=== PATIENT | female | born 1945 | race Caucasian/White ===

== ENCOUNTER 2017-07-25 19:03 | Inpatient (IN) | payer MEDICARE, MEDICAID ==
[~2017-07-25] VITALS: Ht 167.6 cm; Wt 74.0 kg
[2017-07-25 19:39] LABS: BASOPHILS # (AUTO) 0.14 x10^3/uL (0-0.1); BASOPHILS % (AUTO) 1 % (0-1); EOSINOPHILS # (AUTO) 0.52 x10^3/uL (0-0.4); EOSINOPHILS % (AUTO) 4 % (1-7); LYMPHOCYTES # (AUTO) 4.28 x10^3/uL (1-3.4); LYMPHOCYTES % (AUTO) 33 % (22-44); MD NO; MEAN CORPUSCULAR HEMOGLOBIN 32.5 pg (27.0-34.8); MEAN CORPUSCULAR HGB CONC 34.2 g/dL (32.4-35.8); MEAN CORPUSCULAR VOLUME 95.2 fL (80-100); MEAN PLATELET VOLUME 7.7 fL (7.4-10.4); MONOCYTES # (AUTO) 0.84 x10^3/uL (0.2-0.8); MONOCYTES % (AUTO) 6 % (2-9); NEUTROPHILS # (AUTO) 7.28 x10^3/uL (1.8-6.8); NEUTROPHILS % (AUTO) 56 % (42-75); PLATELET COUNT 389 x10^3/uL (130-400); RED BLOOD COUNT 4.75 x10^6/uL (3.82-5.3); RED CELL DISTRIBUTION WIDTH 13.4 % (9.6-15.2)
[2017-07-25 19:46] LABS: ALBUMIN 3.8 g/dL (3.4-5.0); ANION GAP 6 mmol/L (5-15); CALCIUM 8.6 mg/dL (8.5-10.1); CHLORIDE 108 mmol/L (98-107); CREATININE 0.95 mg/dL (0.55-1.02)
[2017-07-25 20:23] LABS: HCT (SEDRATE) 42.7 % (34.6-47.8)
[2017-07-25 20:25] LABS: INTERNATIONAL NORMALIZED RATIO 0.95 (0.93-1.1); PROTHROMBIN TIME 9.9 Seconds (9.6-11.5)
[2017-07-25] MEDS ORDERED: ASPIRIN 81 MG TABLET CHEW PO ONE (21:00)
[2017-07-25] MEDS ORDERED: ASPIRIN 81 MG TABLET CHEW ONE (21:19)
[2017-07-25 21:46] LABS: HEMOGLOBIN A1C 6.3 % (4.2-6.3)
[2017-07-25] MEDS ORDERED: SODIUM CHLORIDE FLUSH 10ML SYR IVF PRN (23:00)
[2017-07-25] MEDS ORDERED: hydrALAzine 20 MG/ML, 1ML ONE (23:01)
[2017-07-25 23:30] VITALS: BP 173/75
[2017-07-25] MEDS ORDERED: NICOTINE 14MG/24 HR PATCH.TD24 TD ONE (23:30)
[2017-07-25] MEDS ORDERED: hydrALAzine 20 MG/ML, 1ML IV PRN (23:30)
[2017-07-25] MEDS ORDERED: BISACODYL 10 MG SUPP PR PRN (23:30)
[2017-07-25] MEDS ORDERED: POLYETHYLENE GLYCOL 17 GM PACKET PO PRN (23:30)
[2017-07-25] MEDS: SODIUM CHLORIDE FLUSH 10ML SYR IVF SCH (23:30)
[2017-07-25] MEDS ORDERED: ACETAMINOPHEN 325 MG TABLET PO PRN (23:30)
[2017-07-26] MEDS: ATORVASTATIN 40 MG TABLET PO SCH ×2 (00:11→20:43)
[2017-07-26] MEDS: LISINOPRIL 10 MG TABLET PO SCH ×3 (00:12→20:43)
[2017-07-26] MEDS: HEPARIN 5,000 UNITS/ML, 1ML SQ SCH ×4 (00:12→22:22)
[2017-07-26 01:06] VITALS: BP 120/80
[2017-07-26 04:51] VITALS: BP 86/56
[2017-07-26 04:52] VITALS: BP 103/63
[2017-07-26 05:31] LABS: BASOPHILS % (AUTO) 1 % (0-1); EOSINOPHILS # (AUTO) 0.46 x10^3/uL (0-0.4); EOSINOPHILS % (AUTO) 4 % (1-7); LYMPHOCYTES # (AUTO) 4.05 x10^3/uL (1-3.4); LYMPHOCYTES % (AUTO) 36 % (22-44); MD NO; MEAN CORPUSCULAR HEMOGLOBIN 32.9 pg (27.0-34.8); MEAN CORPUSCULAR HGB CONC 34.5 g/dL (32.4-35.8); MEAN CORPUSCULAR VOLUME 95.6 fL (80-100); MEAN PLATELET VOLUME 7.6 fL (7.4-10.4); MONOCYTES # (AUTO) 0.76 x10^3/uL (0.2-0.8); MONOCYTES % (AUTO) 7 % (2-9); NEUTROPHILS # (AUTO) 6.02 x10^3/uL (1.8-6.8); NEUTROPHILS % (AUTO) 53 % (42-75); PLATELET COUNT 333 x10^3/uL (130-400); RED BLOOD COUNT 4.18 x10^6/uL (3.82-5.3); RED CELL DISTRIBUTION WIDTH 13.5 % (9.6-15.2)
[2017-07-26 05:40] LABS: CHLORIDE 111 mmol/L (98-107)
[2017-07-26 05:50] LABS: ALANINE AMINOTRANSFERASE 21 U/L (12-78); ALBUMIN 3.1 g/dL (3.4-5.0); ALKALINE PHOSPHATASE 69 U/L (45-117); ANION GAP 8 mmol/L (5-15); BILIRUBIN,TOTAL 0.4 mg/dL (0.2-1.0); CALCIUM 8.4 mg/dL (8.5-10.1); CHOL/HDL RATIO 8.4; CHOLESTEROL, TOTAL 251 mg/dL (140-239); CREATININE 0.87 mg/dL (0.55-1.02); HDL CHOL % 12 % (28-40); HDL CHOLESTEROL (DIRECT) 30 mg/dL (40-60); TOTAL PROTEIN 6.5 g/dL (6.4-8.2); TRIGLYCERIDES 408 mg/dL (50-200)
[2017-07-26 07:08] VITALS: BP 116/63
[2017-07-26] MEDS: SENNA/DOCUSATE TABLET PO SCH (09:43)
[2017-07-26] MEDS: ASPIRIN 81 MG TABLET CHEW PO SCH (09:43)
[2017-07-26] MEDS: SODIUM CHLORIDE FLUSH 10ML SYR IVF SCH ×2 (09:43→20:44)
[2017-07-26 10:24] LABS: MICROSCOPIC INDICATED
[2017-07-26 10:25] LABS: CULTURE INDICATED? YES
[2017-07-26 12:18] VITALS: BP 112/69
[2017-07-26 19:45] VITALS: BP 111/64
[2017-07-27 00:57] VITALS: BP 122/66
[2017-07-27 07:19] VITALS: BP 126/72
[2017-07-27] MEDS: HEPARIN 5,000 UNITS/ML, 1ML SQ SCH (07:30)
[2017-07-27] MEDS: ASPIRIN 81 MG TABLET CHEW PO SCH (08:00)
[2017-07-27] MEDS: SENNA/DOCUSATE TABLET PO SCH (08:41)
[2017-07-27] MEDS: LISINOPRIL 10 MG TABLET PO SCH ×2 (08:42→20:33)
[2017-07-27] MEDS: SODIUM CHLORIDE FLUSH 10ML SYR IVF SCH ×3 (08:42→20:39)
[2017-07-27] MEDS ORDERED: BUPIVACAINE/PF 0.5% ONE (11:52)
[2017-07-27] MEDS ORDERED: PAPAVERINE 30 MG/ML, 2ML ONE (11:53)
[2017-07-27] MEDS ORDERED: EPINEPHRINE 1 MG/ML, 1ML ONE (11:53)
[2017-07-27] MEDS ORDERED: HEPARIN 1,000 UNITS/ML, 10ML ONE (11:53)
[2017-07-27] MEDS ORDERED: THROMBIN 5,000 UNIT VIAL TP ONE (11:53)
[2017-07-27] MEDS ORDERED: PROTAMINE SULFATE 10 MG/ML, 5ML ONE (11:53)
[2017-07-27] MEDS ORDERED: MIDAZOLAM 1 MG/ML, 2ML ONE (12:21)
[2017-07-27] MEDS ORDERED: FENTANYL PF 250 MCG/5ML ONE (12:21)
[2017-07-27] MEDS ORDERED: CEFAZOLIN 1,000 MG ONE (12:45)
[2017-07-27] MEDS ORDERED: LIDOCAINE 4%, 4 ML SYR/CANN TP ONE (12:45)
[2017-07-27] MEDS ORDERED: GLYCOPYRROLATE 0.2MG/1ML, 5ML ONE (12:45)
[2017-07-27] MEDS ORDERED: SUCCINYLCHOLINE 20 MG/ML, 10ML ONE (12:45)
[2017-07-27] MEDS ORDERED: PHENYLEPHRINE 10 MG/ML ONE (12:45)
[2017-07-27] MEDS ORDERED: NEOSTIGMINE 1 MG/ML, 10ML ONE (12:45)
[2017-07-27] MEDS ORDERED: PROPOFOL 10 MG/ML, 20ML ONE (12:45)
[2017-07-27] MEDS ORDERED: ROCURONIUM 10 MG/ML,10ML ONE (12:45)
[2017-07-27] MEDS ORDERED: FENTANYL PF 100 MCG/2ML ONE ×2 (14:24→16:03)
[2017-07-27] MEDS ORDERED: LABETALOL 5MG/ML, 20ML IV PRN (14:30)
[2017-07-27] MEDS ORDERED: HYDROcodone/APAP 7.5-325MG/15ML UDC PO PRN (14:30)
[2017-07-27] MEDS ORDERED: ONDANSETRON ODT 8 MG PO PRN (14:30)
[2017-07-27] MEDS ORDERED: MORPHINE SULFATE 4 MG/ML, 1ML IVPush PRN (14:30)
[2017-07-27] MEDS ORDERED: OXYcodone 5 MG/5 ML ORAL.SOL UDC PO PRN (14:30)
[2017-07-27] MEDS ORDERED: PROMETHAZINE 25 MG/ML, 1ML IV PRN (14:30)
[2017-07-27] MEDS ORDERED: hydrALAzine 20 MG/ML, 1ML IV PRN ×2 (14:30→18:30)
[2017-07-27] MEDS ORDERED: ACETAMINOPHEN 325 MG TABLET PO PRN (14:30)
[2017-07-27] MEDS ORDERED: ASPIRIN 81 MG TABLET EC PO STA (15:15)
[2017-07-27] MEDS ORDERED: GLYCOPYRROLATE 0.4 MG/2 ML, 2ML ONE (15:42)
[2017-07-27] MEDS ORDERED: EPHEDRINE 50 MG/ML, 1ML ONE (15:42)
[2017-07-27] MEDS ORDERED: EPHEDRINE 50 MG/ML, 1ML IVPush ONE (16:00)
[2017-07-27] MEDS ORDERED: GLYCOPYRROLATE 0.2MG/1ML, 5ML IVPush ONE (16:00)
[2017-07-27] MEDS ORDERED: OXYcodone 5 MG/5 ML ORAL.SOL UDC ONE (16:04)
[2017-07-27] MEDS: FENTANYL PF 100 MCG/2ML IV PRN ×2 (16:21→17:35)
[2017-07-27] MEDS ORDERED: EPHEDRINE 50 MG/ML, 1ML IM ONE (17:00)
[2017-07-27] MEDS ORDERED: ONDANSETRON ODT 4 MG ONE ×2 (17:06→21:00)
[2017-07-27] MEDS ORDERED: MORPHINE SULFATE 4 MG/ML, 1ML IV PRN (18:30)
[2017-07-27] MEDS ORDERED: ONDANSETRON 2MG/ML, 2ML IV PRN (18:30)
[2017-07-27] MEDS: HYDROcodone/APAP 5/325 TABLET PO PRN (18:41)
[2017-07-27 19:35] VITALS: BP 73/42
[2017-07-27 19:36] VITALS: BP 101/63
[2017-07-27] MEDS ORDERED: SODIUM CHLORIDE 0.9%, 500ML IVBOLUS ONE ×2 (20:00→21:30)
[2017-07-27] MEDS: POTASSIUM CHLORIDE 20 MEQ in LACTATED RINGERS 1,000 ML IV SCH (20:05)
[2017-07-27] MEDS: ATORVASTATIN 40 MG TABLET PO SCH (20:39)
[2017-07-27] MEDS: CEFAZOLIN PMX 2GM/100ML 100 ML IVPB SCH (20:43)
[2017-07-27 21:00] VITALS: BP 75/50
[2017-07-27] MEDS: ONDANSETRON 2MG/ML, 2ML IVPush PRN (21:03)
[2017-07-27 21:10] VITALS: BP 94/59
[2017-07-27] MEDS: ACETAMINOPHEN 325 MG TABLET PO PRN (22:06)
[2017-07-28] VITALS (9 sets, daily range): BP systolic 87–145; BP diastolic 50–77
[2017-07-28] MEDS ORDERED: SODIUM CHLORIDE 0.9%, 500ML IVBOLUS ONE (01:00)
[2017-07-28] MEDS ORDERED: HETASTARCH 0.9 % 500 ML IV ONE (01:30)
[2017-07-28] MEDS: ACETAMINOPHEN 325 MG TABLET PO PRN ×3 (02:01→09:35)
[2017-07-28] MEDS ORDERED: ONDANSETRON 4 MG TABLET ONE (04:50)
[2017-07-28] MEDS: ASPIRIN 81 MG TABLET EC PO SCH (04:53)
[2017-07-28] MEDS: POTASSIUM CHLORIDE 20 MEQ in LACTATED RINGERS 1,000 ML IV SCH ×2 (04:53→14:59)
[2017-07-28] MEDS: CEFAZOLIN PMX 2GM/100ML 100 ML IVPB SCH (04:55)
[2017-07-28] MEDS: SODIUM CHLORIDE FLUSH 10ML SYR IVF SCH ×4 (08:24→19:41)
[2017-07-28] MEDS: ONDANSETRON 2MG/ML, 2ML IVPush PRN ×3 (08:29→21:56)
[2017-07-28] MEDS: SENNA/DOCUSATE TABLET PO SCH (08:32)
[2017-07-28] MEDS: HYDROcodone/APAP 5/325 TABLET PO PRN ×3 (13:23→22:05)
[2017-07-28] MEDS: ATORVASTATIN 40 MG TABLET PO SCH (19:41)
[2017-07-29] MEDS: POTASSIUM CHLORIDE 20 MEQ in LACTATED RINGERS 1,000 ML IV SCH (01:11)
[2017-07-29 02:00] VITALS: BP 146/77
[2017-07-29] MEDS: ONDANSETRON 2MG/ML, 2ML IVPush PRN (04:58)
[2017-07-29] MEDS: ASPIRIN 81 MG TABLET EC PO SCH (06:04)
[2017-07-29 06:11] VITALS: BP 171/83
[2017-07-29] MEDS: HYDROcodone/APAP 5/325 TABLET PO PRN (06:36)
[2017-07-29] MEDS ORDERED: ACETAMINOPHEN 325 MG TABLET PO SCH (07:30)
[2017-07-29] MEDS ORDERED: LISINOPRIL 10 MG TABLET PO SCH (09:00)
[2017-07-29] MEDS: SENNA/DOCUSATE TABLET PO SCH (09:00)
[2017-07-29] MEDS ORDERED: ATOR40TA78 PO (12:07)
[2017-07-29] MEDS ORDERED: LISI-167 PO (12:07)
[2017-07-29] MEDS ORDERED: ASPI-621 PO (12:07)
[2017-07-30] MEDS ORDERED: LISINOPRIL 20 MG TABLET PO SCH (09:00)
== END 2017-07-29 13:05 | disposition home or self-care (01) | DRG 38 ==
LOC: ED 22:45 → 4EST 23:00 → DCLOUNGE 07-29 12:54
PROVIDERS: ADMIT Internal Medicine; ATTEND Internal Medicine
PROC: 03UH07Z Supplement Right Common Carotid Artery with Autologous Tissue Substitute, Open Approach (ICD-10-PCS; 2017-07-27)
PROC: 03CK0ZZ Extirpation of Matter from Right Internal Carotid Artery, Open Approach (ICD-10-PCS; 2017-07-27)
PROC: 03UK07Z Supplement Right Internal Carotid Artery with Autologous Tissue Substitute, Open Approach (ICD-10-PCS; 2017-07-27)
PROC: 03CM0ZZ Extirpation of Matter from Right External Carotid Artery, Open Approach (ICD-10-PCS; 2017-07-27)
PROC: 03CH0ZZ Extirpation of Matter from Right Common Carotid Artery, Open Approach (ICD-10-PCS; principal; 2017-07-27 12:30)
DX: I65.23 Occlusion and stenosis of bilateral carotid arteries (principal); H34.11 Central retinal artery occlusion, right eye; J44.9 Chronic obstructive pulmonary disease, unspecified; Z66 Do not resuscitate; H54.61 Unqualified visual loss, right eye, normal vision left eye; E78.5 Hyperlipidemia, unspecified; F17.210 Nicotine dependence, cigarettes, uncomplicated; H26.9 Unspecified cataract; I10 Essential (primary) hypertension; D72.829 Elevated white blood cell count, unspecified; Z82.5 Family history of asthma and other chronic lower respiratory diseases; Z79.899 Other long term (current) drug therapy; Z82.49 Family history of ischemic heart disease and other diseases of the circulatory system; Z79.1 Long term (current) use of non-steroidal anti-inflammatories (NSAID); I95.9 Hypotension, unspecified
CPT/HCPCS: 36415; 70450; 70551; 80048; 80053; 80061; 81001; 82040; 83036; 85014; 85018; 85025; 85610; 85651; 85730; 86140; 87086; 93005; 93306; 93880; 96374; C1729; J0171; J0690; J1644; J2250; J2405; J2704; J2710; J2720; J3010; J3480; J3490; Q0162; C1768; J0330; J0360; J2370; J2440; J7040; J7120

== ENCOUNTER 2018-06-19 23:57 | Emergency (ER) | payer MEDICARE, MEDICAID ==
[~2018-06-19] VITALS: Ht 165.1 cm; Wt 65.4 kg
[~2018-06-19 23:57] MED LIST: ASPI81TA45 PO; ATOR40TA78 PO; LISI-167 PO
[2018-06-20] VITALS: BP 150/80
--- NOTE | 2018-06-20 01:02 | NUR ---
PT D/C WITH NOSE CLIP AND D/C SUMMARY. ALL QUESTIONS ANSWERED. PT AMBULATED TO REGISTRATION DESK WITH STEADY GAIT FOR D/C HOME. PT DENIES ANY OTHER NEEDS PERTAINING TO THIS VISIT.
== END 2018-06-20 01:05 | disposition home or self-care (01) ==
LOC: ED 06-20 00:28
DX: R04.0 Epistaxis (principal); I10 Essential (primary) hypertension; F17.200 Nicotine dependence, unspecified, uncomplicated
CPT/HCPCS: 99283